=== PATIENT | female | born 1955 | race Caucasian/White ===

== ENCOUNTER 2023-11-28 06:56 | Day surgery (SDC) | payer MEDICARE, OTHER ==
[~2023-11-28] VITALS: Ht 160 cm; Wt 68.6 kg
[~2023-11-28 06:56] MED LIST: HYDRODIURIL50 MG PO; LR 1,000 ML IV SCH; MOTRIN 800800 MG/TAB PO; ZESTRIL 20MG TA20 MG PO; ZOCOR 40MG40 MG PO
[2023-11-28 08:04] VITALS: BP 111/42; PULSE 65; TEMP 97.8
[2023-11-28] MEDS ORDERED: fentaNYL 50 MCG/ML 2 ML VIAL ONE (08:13)
[2023-11-28] MEDS ORDERED: Lidocaine PF 2% (20 MG/ML) 5 ML VIAL ONE (08:13)
[2023-11-28] MEDS ORDERED: DECADRON 1MG TAB1 MG PO (08:14)
[2023-11-28] MEDS ORDERED: FOLIC ACID 11 MG/TA1 PO (08:16)
[2023-11-28] MEDS ORDERED: Lidocaine PF 2% (20 MG/ML) 10 ML POLY AMP IJP ONE (08:45)
[2023-11-28] MEDS ORDERED: Ondansetron 4 MG/2 ML VIAL IV PRN ×2 (09:15→10:15)
[2023-11-28] MEDS ORDERED: fentaNYL 50 MCG/ML 1 ML SYRINGE/VIAL [PACU/SDC ONLY] IV PRN (09:15)
[2023-11-28] MEDS ORDERED: HYDROmorphone 1 MG/1 ML SYRINGE [PACU/SDC ONLY] IV PRN (09:15)
[2023-11-28 09:56] VITALS: BP 102/53; PULSE 68; TEMP 97.3
[2023-11-28 10:10] VITALS: BP 108/60; PULSE 66
[2023-11-28] MEDS ORDERED: Morphine 4 MG/ML VIAL IV PRN (10:15)
[2023-11-28] MEDS ORDERED: Acetaminophen 325 MG TAB PO PRN (10:15)
[2023-11-28 10:20] VITALS: BP 108/58; PULSE 68
--- NOTE | 2023-11-28 10:35 | NUR ---
0956 RETURNS TO ROOM 1 FROM OR PER CART WITH HOB ELEVATED 40 DEGREES. AWAKE, ALERT, RESP UNLABORED. VITAL SIGNS OBTAINED. TEGADERM DRESSING RIGHT CHEST, BANDAID RIGHT NECK CLEAN DRY AND INTACT. PORT ACCESSED IN OR. DENIES DISCOMFORT OR DYSPNEA. CALL LIGHT AT SIDE 1010 HOB ELEVATES 75 DEGREES. TOLERATES PO WATER WITHOUT NAUSEA. DISCHARGE INSTRUCTIONS REVIEWED. PATIENT VERBALIZES UNDERSTANDING. COPY PROVIDED IN DISCHARGE FOLDER 1024 SITS ON EDGE OF CART. DRESSES SELF, THEN AMBULATES TO BATHROOM WITH STANDBY ASSIST
== END 2023-11-28 10:35 | disposition home or self-care (01) ==
LOC: SDCO 06:56
DX: C34.92 Malignant neoplasm of unspecified part of left bronchus or lung (principal); C77.1 Secondary and unspecified malignant neoplasm of intrathoracic lymph nodes; F17.210 Nicotine dependence, cigarettes, uncomplicated
CPT/HCPCS: C1788; J0690; J1644; J2704; J3010; J7120